=== PATIENT | female | born 1985 | race Hispanic/Latino ===

== ENCOUNTER 2017-08-25 20:13 | Emergency (ER) | payer MEDICARE ==
[~2017-08-25] VITALS: Ht 154.9 cm; Wt 89.8 kg
== END 2017-08-25 20:46 | disposition left against medical advice (07) ==
LOC: ER 20:13
DX: R20.0 Anesthesia of skin (principal)

== ENCOUNTER 2019-12-28 20:32 | Emergency (ER) | payer MEDICARE, OTHER ==
[~2019-12-28] VITALS: Ht 154.9 cm; Wt 89.8 kg
--- NOTE | 2019-12-28 20:59 | Emergency Department Note ---
History of Present Illnes History of Present Illness Chief Complaint: General Medicine Complaints History of Present Illness This is a 34 year old female COMES IN TO ED FOR COMPLAINTS OF PAIN TO RIGHT ANKLE AFTER GOING DOWN STAIRS PRIOR TO ARRIVAL. STATES SHE ROLLED HER ANKLE WHEN SHE REACHED THE BOTTOM OF THE STAIRS, STATES CAN BEAR WEIGHT SECONDARY TO PAIN . Historian: Patient Arrival Mode: Car Onset (how long ago): hour(s) (1) Location: RIGHT ANKLE Quality: PAIN Radiation: Reports non-radiation Severity: moderate Onset quality: sudden Duration (how long): hour(s) (1) Timing of current episode: constant Progression: unchanged Chronicity: new Context: Reports trauma/injury ( ABOVE) Relieving factors: none Exacerbating factors: movement, other (WEIGHT BEARING) Associated symptoms: Reports denies other symptoms Treatments prior to arrival: none Past Medical/Family History Physician Review I have reviewed the patient's past medical and family history. Any updates have been documented here. Past Medical History Recent Fever: No Clinical Suspicion of Infectio: No New/Unexplained Change in Ment: No Past Medical History: None Other Medical History: GESTATIONAL DIABETES Past Surgical History: Cholecysctectomy, Tubal Ligation Other Surgery: TUBAL REVERSE COLONOSCOPY Social History Smoking Cessation: Never Smoker Alcohol Use: None Any Illegal Drug Use: No Physically hurt or threatened: No Other Last Tetanus: NOT UTD Review of Systems Review of Systems Constitutional: Reports no symptoms EENTM: Reports no symptoms Cardiovascular: Reports no symptoms Respiratory: Reports no symptoms Gastrointestinal: Reports no symptoms Genitourinary: Reports no symptoms Musculoskeletal: Reports as per HPI Integumentary: Reports no symptoms Neurological: Reports no symptoms Psychological: Reports no symptoms Endocrine: Reports no symptoms Hematological/Lymphatic: Reports no symptoms Physical Exam Related Data Allergies: Coded Allergies: No Known Drug Allergies (Verified Allergy, Mild, 12/19/09) Triage Vital Signs Vital Signs Date Time Temp Pulse Resp B/P (MAP) Pulse Ox O2 Delivery O2 Flow Rate FiO2 12/28/19 20:38 98.3 74 18 102/65 100 Vital signs reviewed: Yes Physical Exam CONSTITUTIONAL Constitutional: Present well-developed, Present well-nourished; Absent distressed HENT HENT: Present normocephalic, Present atraumatic, Present oropharynx clear/moist, Present nose normal HENT L/R: Present left ext ear normal, Present right ext ear normal EYES Eyes: Reports PERRL, Reports conjunctivae normal NECK Neck: Present ROM normal PULMONARY Pulmonary: Present effort normal, Present breath sounds normal CARDIOVASCULAR Cardiovascular: Present regular rhythm, Present heart sounds normal, Present capillary refill normal, Present normal rate GASTROINTESTINAL Abdominal: Present soft, Present nontender, Present bowel sounds normal GENITOURINARY Genitourinary: Present exam deferred SKIN Skin: Present warm, Present dry MUSCULOSKELETAL PAIN TO LATERAL ASPECT OF RIGHT ANKLE WITH ROM, NO SWELLING OR DEFORMITY NOTED, PULSES INTACT NEUROLOGICAL Neurological: Present alert, Present oriented x 3, Present no gross motor or sensory deficits PSYCHOLOGICAL Psychological: Present mood/affect normal, Present judgement normal Results Imaging Imaging results reviewed: Yes Impressions Procedure: [id number] DX/ANKLE 3 + VIEWS RIGHT Exam Date: 12/28/19 Exam Time: 2133 REPORT STATUS: Signed X-ray right ankle 3 views HISTORY: Pain. COMPARISON: None available. FINDINGS: Bones: Tiny flake avulsion from the lateral malleolus tip. Joints: The joint spaces are well-maintained. Soft tissues: Edema about the foot and ankle. IMPRESSION: Tiny flake avulsion from the lateral malleolus tip. Edema about the foot and ankle. Signed by: Sindi Savage DO on 12/28/2019 10:57 PM Dictated By: SINDI SAVAGE DO 56 Transcribed By: ARIANNA on 12/28/192256 COPY TO: FABRICE NINO MD~ Procedures Orthopedic Splinting/Casting Injury: Injury #1 Side: right Lower extremity injury locatio: ankle Lower extremity immobilizer: boot orthosis Other orthopedic equipment: crutches Assessment & Plan Medical Decision Making MDM XRAY RIGHT ANKLE ORDERED TO EVAL FOR FRACTURE Assessment & Plan Final Impression: (1) Avulsion fracture of lateral malleolus of right fibula Depart Disposition: HOME, SELF-CARE Last Vital Signs Date Time Temp Pulse Resp B/P (MAP) Pulse Ox O2 Delivery O2 Flow Rate FiO2 12/28/19 20:38 98.3 74 18 102/65 100 FABRICE NINO MD Dec 28, 2019 20:59
--- OUTSIDE RECORDS SUMMARY | 2019-12-28 22:39 | XMS REPORT | Continuity of Care Document ---
Author Author [employer] Address Unknown Phone Unavailable Care Team Providers Care Provider Education Specialist Name Role Phone [employer] Unavailable Un available Problems No Data Provided for This Section Medications No Data Provided for This Section Allergies, Adverse Reactions, Alerts No Known Medication Allergies Immunizations No Data Provided for This Section Results No Data Provided for This Section Pathology Reports No Data Provided for This Section Diagnostic Reports No Data Provided for This Section Consultation Notes No Data Provided for This Section Discharge Summaries No Data Provided for This Section History and Physicals No Data Provided for This Section Vital Signs No Data Provided for This Section Encounters Location Location Details Encounter Type Encounter Number Reason For Visit Attending Provider ADM Date DC Date Status Source Outpatient [id number] [facility] 06/06/[address] [facility] Outpatient [id number] [facility] 11/07/[address] [facility] Procedures No Data Provided for This Section Assessment and Plan No Data Provided for This Section Plan of Care No Data Provided for This Section Social History No Data Provided for This Section Family History No Data Provided for This Section Advance Directives No Data Provided for This Section Functional Status No Data Provided for This Section
--- OUTSIDE RECORDS SUMMARY | 2019-12-28 22:39 | XMS REPORT | Continuity of Care Document ---
Author Author [facility] t Organization [facility] Address [address] [place] [address] Phone Unavailable Care Team Providers Care Wafer Machine Operator Name Role Phone NONSTAFF PCP Unavailable Payers Payer Name Policy Type Policy Number Effective Date Expiration Date S ource Problems Condition Name Condition Details Condition Category Status Onset Date Resolution Date Last Treatment Date Treating Clinician Comments Source Delayed surgical wound healing Delayed surgical wound healing Problem Active [facility] Allergies, Adverse Reactions, Alerts Allergy Name Allergy Type Status Severity Reaction(s) Onset Date Inacti ve Date Treating Clinician Comments Source No Known Allergies DA Active U 2017-07-03 00:00:00 [facility] Medications This patient has no known medications. Procedures This patient has no known procedures. Encounters Start Date/Time End Date/Time Encounter Type Admission Type Attendi [facility] Care Department Encounter ID Source 2019-02-22 11:00:00 2019-02-22 11:15:00 Departed Emergency Room [facility] [id number] [facility] 2017-08-25 20:13:00 2017-08-25 20:46:00 Departed Emergency Room [facility] [id number] [facility] Results Test Description Test Time Test Comments Results Result Comments Source URINALYSIS COMPLETE 2019-02-16 03:04:00 Test Item UA COLOR (test code = COLU) YELLOW YELLOW UA APPEARANCE (test code = APPU) CLEAR CLEAR UA GLUCOSE DIPSTICK (test code = DGLUU) NEGATIVE mg/dL NEGATIVE UA BILIRUBIN DIPSTICK (test code = BILU) NEGATIVE mg/dL NEGATIVE UA KETONE DIPSTICK (test code = KETU) NEGATIVE mg/dL NEGATIVE UA SPECIFIC GRAVITY (test code = SGU) 1.034 1.001-1.035 UA BLOOD DIPSTICK (test code = MARCE) 1.0 mg/dL (3+) mg/dL NEGATIVE A UA PH DIPSTICK (test code = VERNON) 6.5 5.0-8.0 UA PROTEIN DIPSTICK (test code = PROU) 20 (Trace) mg/dL NEGATIVE A UA UROBILINIOGEN DIPSTICK (test code = URO) 0.0-0.2 (NORMAL) mg/dL 0.0-0.2 UA NITRITE DIPSTICK (test code = HALEY) NEGATIVE NEGATIVE UA LEUKOCYTE ESTERASE W REFLEX (test code = LEUUR) NEGATIVE Matty/uL NEGATIVE UA WBC (test code = WBCU) 0-5 per HPF 0-5 UA RBC (test code = RBCU) 0-2 #/HPF 0-5 UA EPITHELIAL CELLS (test code = EPIU) FEW per HPF FEW UA BACTERIA (test code = BACU) NONE SEEN #/HPF NONE UA MUCUS (test code = MUCU) FEW #/LPF FEW Urine Source? Clean CatchBASIC METABOLIC [id number] 02:59:00* Test Item Value Reference Range Interpretation Comments SODIUM (test code = NA) 144 mmol/L 136-145 N POTASSIUM (test code = K) 3.7 mmol/L 3.5-5.1 N CHLORIDE (test code = CL) 109.0 mmol/L 98-107 H CARBON DIOXIDE (test code = CO2) 27.0 mmol/L 21-32 N ANION GAP (test code = GAP) 11.7 10-20 N GLUCOSE (test code = GLU) 98 mg/dL 74-106 N BLOOD UREA NITROGEN (test code = BUN) 17 mg/dL 7-18 N GLOMERULAR FILTRATION RATE (test code = GFR) > 60 mL/min >=60 Estimated GFR by using Modified MDRD formula.Chronic kidney disease is defined as either kidney damageor GFR <60 mL/min/1.73 m2 for >3 months. CREATININE (test code = CREAT) 0.60 mg/dL 0.55-1.02 N Note change in reference range due to change in reagent. BUN/CREATININE RATIO (test code = BUN/CREA) 28.3 10-20 H CALCIUM (test code = CA) 8.5 mg/dL 8.5-10.1 N HEPATIC FUNCTION [id number] 02:59:00* Test Item Value Reference Range Interpretation Comments TOTAL PROTEIN (test code = PROT) 7.3 gram/dL 6.4-8.2 N ALBUMIN (test code = ALB) 3.5 g/dL 3.4-5.0 N GLOBULIN (test code = GLOB) 3.8 gram/dL 2.7-4.2 N ALBUMIN/GLOBULIN RATIO (test code = A/G) 0.9 0.75-1.50 N BILIRUBIN TOTAL (test code = BILT) 0.30 mg/dL 0.0-1.0 N BILIRUBIN DIRECT (test code = BILD) 0.07 mg/dL 0.0-0.20 N SGOT/AST (test code = AST) 8 IUnit/L 15-37 L SGPT/ALT (test code = ALT) 17 IUnit/L 12-78 N ALKALINE PHOSPHATASE TOTAL (test code = ALKP) 58 IUnit/L 45-117 N Note change in reference range due to change in reagent. HCG SERUM [id number] 02:59:00* Test Item Value Reference Range Interpretation Comments HCG SERUM QUAL (test code = HCGQL) NEGATIVE NEGATIVE This HCGQL test is NOT applicable for MALE patients.Check with nurse about probable order error.If Tumor Marker Test needed, nurse should order test "HCGTU"(Test #550.00354) [id number] 02:59:00* Test Item Value Reference Range Interpretation Comments TROPONIN-I (test code = TROPI) <0.015 ng/mL 0-0.045 N BASIC METABOLIC [id number] 02:56:00* Test Item Value Reference Range Interpretation Comments SODIUM (test code = NA) 144 mmol/L 136-145 N POTASSIUM (test code = K) 3.7 mmol/L 3.5-5.1 N CHLORIDE (test code = CL) 109.0 mmol/L 98-107 H CARBON DIOXIDE (test code = CO2) mmol/L 21-32 ANION GAP (test code = GAP) 10-20 GLUCOSE (test code = GLU) mg/dL 74-106 BLOOD UREA NITROGEN (test code = BUN) mg/dL 7-18 GLOMERULAR FILTRATION RATE (test code = GFR) mL/min >=60 CREATININE (test code = CREAT) mg/dL 0.55-1.02 BUN/CREATININE RATIO (test code = BUN/CREA) 10-20 CALCIUM (test code = CA) mg/dL 8.5-10.1 HEPATIC FUNCTION [id number] 02:56:00* Test Item Value Reference Range Interpretation Comments TOTAL PROTEIN (test code = PROT) gram/dL 6.4-8.2 ALBUMIN (test code = ALB) g/dL 3.4-5.0 GLOBULIN (test code = GLOB) gram/dL 2.7-4.2 ALBUMIN/GLOBULIN RATIO (test code = A/G) 0.75-1.50 BILIRUBIN TOTAL (test code = BILT) mg/dL 0.0-1.0 BILIRUBIN DIRECT (test code = BILD) mg/dL 0.0-0.20 SGOT/AST (test code = AST) IUnit/L 15-37 SGPT/ALT (test code = ALT) IUnit/L 12-78 ALKALINE PHOSPHATASE TOTAL (test code = ALKP) IUnit/L 45-117 HCG SERUM [id number] 02:56:00* Test Item Value Reference Range Interpretation Comments HCG SERUM QUAL (test code = HCGQL) NEGATIVE NEGATIVE This HCGQL test is NOT applicable for MALE patients.Check with nurse about probable order error.If Tumor Marker Test needed, nurse should order test "HCGTU"(Test #550.79901) [id number] 02:56:00* Test Item Value Reference Range Interpretation Comments TROPONIN-I (test code = TROPI) ng/mL 0-0.045 PROTHROMBIN [id number] 02:53:00* Test Item Value Reference Range Interpretation Comments PROTHROMBIN TIME PATIENT (test code = PTP) 10.6 seconds 9.0-14.0 N INTERNATIONAL NORMAL RATIO (test code = INR) 0.9 0.8-1.2 N The therapeutic range for oral anticoagulant therapy formost indications is an international normalized ratio (INR)of between 2.0 and 3.0. The recommended therapeutic INRrange for various clinical situations is listed below: Clinical Situation INR range Pulmonary e mbolism treatment (2.0-3.0)Venous thrombosis treatmentVenous thrombosis prophylaxis (high risk surgery)Prevention of systemic embolism from: Acute myocardial infarction Valvular heart disease Atrial fibrillation Mechanical prosthetic heart valves (2.5-3.5) IS PATIENT ON ANTICOAGULANTS? NTHROMBOPLASTIN TIME [id number] 02:53:00* Test Item Value Reference Range Interpretation Comments THROMBOPLASTIN TIME PARTIAL (test code = PTT) 30.5 seconds 25.0-36. 5 N IS PATIENT ON ANTICOAGULANTS? NBASIC METABOLIC [id number] 02:49:00* Test Item Value Reference Range Interpretation Comments SODIUM (test code = NA) 144 mmol/L 136-145 N POTASSIUM (test code = K) 3.7 mmol/L 3.5-5.1 N CHLORIDE (test code = CL) 109.0 mmol/L 98-107 H CARBON DIOXIDE (test code = CO2) mmol/L 21-32 ANION GAP (test code = GAP) 10-20 GLUCOSE (test code = GLU) mg/dL 74-106 BLOOD UREA NITROGEN (test code = BUN) mg/dL 7-18 GLOMERULAR FILTRATION RATE (test code = GFR) mL/min >=60 CREATININE (test code = CREAT) mg/dL 0.55-1.02 BUN/CREATININE RATIO (test code = BUN/CREA) 10-20 CALCIUM (test code = CA) mg/dL 8.5-10.1 HEPATIC FUNCTION [id number] 02:49:00* Test Item Value Reference Range Interpretation Comments TOTAL PROTEIN (test code = PROT) gram/dL 6.4-8.2 ALBUMIN (test code = ALB) g/dL 3.4-5.0 GLOBULIN (test code = GLOB) gram/dL 2.7-4.2 ALBUMIN/GLOBULIN RATIO (test code = A/G) 0.75-1.50 BILIRUBIN TOTAL (test code = BILT) mg/dL 0.0-1.0 BILIRUBIN DIRECT (test code = BILD) mg/dL 0.0-0.20 SGOT/AST (test code = AST) IUnit/L 15-37 SGPT/ALT (test code = ALT) IUnit/L 12-78 ALKALINE PHOSPHATASE TOTAL (test code = ALKP) IUnit/L 45-117 HCG SERUM [id number] 02:49:00* Test Item Value Reference Range Interpretation Comments HCG SERUM QUAL (test code = HCGQL) NEGATIVE [id number] 02:49:00* Test Item Value Reference Range Interpretation Comments TROPONIN-I (test code = TROPI) ng/mL 0-0.045 CBC W/O [id number] 02:42:00* Test Item Value Reference Range Interpretation Comments WHITE BLOOD CELL (test code = WBC) 5.4 K/mm3 4.5-12.5 N RED BLOOD CELL (test code = RBC) 4.34 mill/mm3 3.7-5.2 N HEMOGLOBIN (test code = HGB) 10.8 gram/dL 11.5-15.5 L HEMATOCRIT (test code = HCT) 35.8 % 36.0-46.0 L MEAN CELL VOLUME (test code = MCV) 82.5 fL 80-98 N MEAN CELL HGB (test code = MCH) 24.9 picogram 27.0-33.0 L MEAN CELL HGB CONCETRATION (test code = MCHC) 30.2 gram/dL 33.0-36. 0 L RED CELL DISTRIBUTION WIDTH (test code = RDW) 13.9 % 11.6-16. 2 N PLATELET COUNT (test code = PLT) 362 K/mm3 150-450 N MEAN PLATELET VOLUME (test code = MPV) 8.9 fL 6.7-11.0 N
--- NOTE | 2019-12-28 23:01 | Diagnostic Imaging Report ---
X-ray right ankle 3 views HISTORY: Pain. COMPARISON: None available. FINDINGS: Bones: Tiny flake avulsion from the lateral malleolus tip. Joints: The joint spaces are well-maintained. Soft tissues: Edema about the foot and ankle. IMPRESSION: Tiny flake avulsion from the lateral malleolus tip. Edema about the foot and ankle. Signed by: Jeffrey Savage DO on 12/28/2019 10:57 PM
== END 2019-12-28 23:45 | disposition home or self-care (01) ==
LOC: ER 20:39
DX: S82.61XA Displaced fracture of lateral malleolus of right fibula, initial encounter for closed fracture (principal); X50.1XXA Overexertion from prolonged static or awkward postures, initial encounter; Y93.01 Activity, walking, marching and hiking
CPT/HCPCS: 99283

== ENCOUNTER 2020-06-15 17:42 | Emergency (ER) | payer MEDICARE, OTHER ==
[~2020-06-15] VITALS: Ht 154.9 cm; Wt 95.3 kg
[2020-06-15] MEDS ORDERED: ZOFRAN4 MG PO (18:00)
[2020-06-15] MEDS ORDERED: MECLIZINE HCL12.5 MG PO (18:00)
== END 2020-06-15 18:14 | disposition home or self-care (01) ==
LOC: FSED 17:55
DX: H81.11 Benign paroxysmal vertigo, right ear (principal); E03.9 Hypothyroidism, unspecified
CPT/HCPCS: 99283

== ENCOUNTER 2020-08-17 19:08 | Emergency (ER) | payer OTHER ==
[~2020-08-17] VITALS: Ht 154.9 cm; Wt 97.5 kg
[~2020-08-17 19:08] MED LIST: MECLIZINE HCL12.5 MG PO; ZOFRAN4 MG PO
[2020-08-17] MEDS ORDERED: BELLADONNA ALK/PHENOBARBITAL 5 ML UDC ONE (21:22)
[2020-08-17] MEDS ORDERED: LIDOCAINE VISC 2% SOLN 15 ML UDC ONE (21:22)
[2020-08-17] MEDS ORDERED: MAGNESIUM/ALUMINUM/SIMETHICONE 30 ML UDC ONE (21:23)
[2020-08-17] MEDS ORDERED: FAMOTIDINE 20 MG TAB PO ONE (22:00)
[2020-08-17] MEDS ORDERED: FAMOTIDINE 20 MG TAB ONE (22:07)
[2020-08-17] MEDS ORDERED: FAMOTIDINE20 MG PO (22:32)
[2020-08-17 22:38] VITALS: BP 123/73
[2020-08-18] MEDS ORDERED: DONNATAL/LIDOCAINE/MAALOX 30 ML SUSP PO ONE (01:45)
== END 2020-08-17 22:38 | disposition home or self-care (01) ==
LOC: FSED 22:03
DX: K21.9 Gastro-esophageal reflux disease without esophagitis (principal); R07.9 Chest pain, unspecified; E06.3 Autoimmune thyroiditis; E03.9 Hypothyroidism, unspecified; E28.2 Polycystic ovarian syndrome; Z79.899 Other long term (current) drug therapy
CPT/HCPCS: 93005; 99283

== ENCOUNTER 2020-09-04 17:08 | Emergency (ER) | payer OTHER ==
[~2020-09-04] VITALS: Ht 154.9 cm; Wt 101.2 kg
[~2020-09-04 17:08] MED LIST changes: +FAMOTIDINE20 MG PO
[2020-09-04] MEDS ORDERED: ACETAMINOPHEN 325 MG TAB PO ONE (17:30)
== END 2020-09-04 19:04 | disposition home or self-care (01) ==
LOC: FSED 17:12
DX: U07.1 COVID-19 (principal)
CPT/HCPCS: 71045; 83518; 87400; 99283; U0002

== ENCOUNTER 2021-01-02 11:17 | Emergency (ER) | payer OTHER ==
[~2021-01-02] VITALS: Ht 154.9 cm; Wt 101.2 kg
[2021-01-02] MEDS ORDERED: KETOROLAC TROMETHAMINE 60 MG/2 ML VIAL IM ONE (12:00)
[2021-01-02] MEDS ORDERED: HYDROCODONE/APAP 7.5MG-325MG 1 EA TAB PO ONE (12:00)
[2021-01-02] MEDS ORDERED: ONDANSETRON HCL 4 MG ORAL DISINTEGRATING TAB PO ONE (12:00)
== END 2021-01-02 13:10 | disposition home or self-care (01) ==
LOC: ER 11:27
DX: S93.401A Sprain of unspecified ligament of right ankle, initial encounter (principal); X50.1XXA Overexertion from prolonged static or awkward postures, initial encounter; Y93.01 Activity, walking, marching and hiking; Y92.89 Other specified places as the place of occurrence of the external cause; E06.3 Autoimmune thyroiditis; E28.2 Polycystic ovarian syndrome
CPT/HCPCS: 73610; 99283; J1885; Q0162

== ENCOUNTER 2021-03-20 17:01 | Emergency (ER) | payer OTHER ==
[~2021-03-20] VITALS: Ht 154.9 cm; Wt 98.0 kg
[2021-03-20] MEDS ORDERED: LEVOTHYROXINE50 MCG PO (18:18)
== END 2021-03-20 20:45 | disposition home or self-care (01) ==
LOC: FSED 17:40
DX: R05.9 Cough, unspecified (principal); J06.9 Acute upper respiratory infection, unspecified; E03.9 Hypothyroidism, unspecified; E28.2 Polycystic ovarian syndrome
CPT/HCPCS: 83518; 87400; 87420; 99282

== ENCOUNTER 2021-04-24 18:35 | Emergency (ER) | payer OTHER ==
[~2021-04-24] VITALS: Ht 154.9 cm; Wt 103.9 kg
[~2021-04-24 18:35] MED LIST changes: +LEVOTHYROXINE50 MCG PO
[2021-04-24] MEDS ORDERED: HYDROXYZINE HCL 25 MG TAB PO STA (18:47)
[2021-04-24] MEDS ORDERED: DIPHENHYDRAMINE HCL 25 MG CAP PO STA (18:49)
[2021-04-24] MEDS ORDERED: PREDNISONE 20 MG TAB PO STA (18:49)
[2021-04-24] MEDS ORDERED: PREDNISONE 20 MG TAB ONE (19:14)
[2021-04-24] MEDS ORDERED: DIPHENHYDRAMINE HCL 25 MG CAP ONE (19:15)
[2021-04-24] MEDS ORDERED: PREDNISONE20 MG PO (19:23)
[2021-04-24] MEDS ORDERED: HYDROXYZINE HCL25 MG PO (19:23)
[2021-04-24 19:25] VITALS: BP 118/70
== END 2021-04-24 19:25 | disposition home or self-care (01) ==
LOC: FSED 18:40
DX: R21 Rash and other nonspecific skin eruption (principal); E03.9 Hypothyroidism, unspecified; E28.2 Polycystic ovarian syndrome
CPT/HCPCS: 99282; J7512

== ENCOUNTER 2021-10-20 03:17 | Emergency (ER) | payer OTHER ==
[~2021-10-20] VITALS: Ht 154.9 cm; Wt 103.9 kg
[~2021-10-20 03:17] MED LIST changes: +HYDROXYZINE HCL25 MG PO; +PREDNISONE20 MG PO
[2021-10-20] MEDS ORDERED: AMOXICILLIN/CLAVULANATE K 875 MG TAB PO STA (04:21)
[2021-10-20] MEDS ORDERED: IBUPROFEN 600 MG TAB PO STA (04:22)
[2021-10-20] MEDS ORDERED: DEXAMETHASONE SOD PHOS 10 MG/1 ML VIAL IM ONE (04:30)
[2021-10-20] MEDS ORDERED: AMOXICILLIN500 MG PO (04:33)
[2021-10-20] MEDS ORDERED: DEXAMETHASONE SOD PHOS INJ 4 MG/ML SDV ONE (04:34)
[2021-10-20] MEDS ORDERED: IBUPROFEN600 MG PO (04:34)
[2021-10-20] MEDS ORDERED: FLUTICASONE PRO16 GM INH (04:36)
[2021-10-20] MEDS ORDERED: IBUPROFEN 600 MG TAB ONE (04:36)
== END 2021-10-20 04:45 | disposition home or self-care (01) ==
LOC: FSED 03:21
DX: J02.9 Acute pharyngitis, unspecified (principal); H69.81 Other specified disorders of Eustachian tube, right ear; H92.01 Otalgia, right ear; E03.9 Hypothyroidism, unspecified; Z90.49 Acquired absence of other specified parts of digestive tract; E66.01 Morbid (severe) obesity due to excess calories; Z68.41 Body mass index [BMI] 40.0-44.9, adult
CPT/HCPCS: 99283; J1100

== ENCOUNTER 2022-04-21 19:52 | Emergency (ER) | payer OTHER ==
[~2022-04-21] VITALS: Ht 154.9 cm; Wt 80.7 kg
[~2022-04-21 19:52] MED LIST changes: +AMOXICILLIN500 MG PO; +FLUTICASONE PRO16 GM INH; +IBUPROFEN600 MG PO
[2022-04-21] MEDS ORDERED: CEFDINIR250 MG/5 M PO (20:12)
[2022-04-21] MEDS ORDERED: ACETAMINOP160 MG/52 PO (20:12)
[2022-04-21 20:16] VITALS: BP 107/73
[2022-04-22] MEDS ORDERED: AZITHROMYC200 MG/5 M PO (12:57)
== END 2022-04-21 20:16 | disposition home or self-care (01) ==
LOC: FSED 20:02
DX: H66.92 Otitis media, unspecified, left ear (principal); E03.9 Hypothyroidism, unspecified; Z79.899 Other long term (current) drug therapy
CPT/HCPCS: 99282

== ENCOUNTER 2022-04-22 11:30 | Emergency (ER) | payer OTHER ==
[~2022-04-22] VITALS: Ht 154.9 cm; Wt 80.7 kg
[~2022-04-22 11:30] MED LIST changes: +ACETAMINOP160 MG/52 PO; +CEFDINIR250 MG/5 M PO
[2022-04-22] MEDS ORDERED: DEXAMETHASONE SOD PHOS 10 MG/1 ML VIAL IM ONE (12:45)
[2022-04-22] MEDS ORDERED: AZITHROMYC200 MG/5 M PO (12:57)
[2022-04-22] MEDS ORDERED: DEXAMETHASONE SOD PHOS INJ 4 MG/ML SDV ONE (12:58)
== END 2022-04-22 13:31 | disposition home or self-care (01) ==
LOC: FSED 12:06
DX: L29.9 Pruritus, unspecified (principal); T36.1X5A Adverse effect of cephalosporins and other beta-lactam antibiotics, initial encounter; H66.92 Otitis media, unspecified, left ear; E03.9 Hypothyroidism, unspecified; Z98.84 Bariatric surgery status; Z79.899 Other long term (current) drug therapy; Y92.009 Unspecified place in unspecified non-institutional (private) residence as the place of occurrence of the external cause
CPT/HCPCS: 99282; J1100 ×2

== ENCOUNTER 2022-05-20 11:05 | Emergency (ER) | payer OTHER ==
[~2022-05-20] VITALS: Ht 154.9 cm; Wt 78.5 kg
[~2022-05-20 11:05] MED LIST changes: +AZITHROMYC200 MG/5 M PO
[2022-05-20] MEDS ORDERED: METHYLPREDNISOLONE SOD SUCC 125 MG/2ML VIAL ONE (11:38)
[2022-05-20] MEDS ORDERED: METHYLPREDNISOLONE SOD SUCC 125 MG/2ML VIAL IM ONE (11:45)
[2022-05-20] MEDS ORDERED: BENADRYL25 M1 PO (11:46)
[2022-05-20] MEDS ORDERED: PEPCID20 MG PO (11:46)
[2022-05-20] MEDS ORDERED: FAMOTIDINE 20 MG TAB PO ONE (12:00)
== END 2022-05-20 12:12 | disposition home or self-care (01) ==
LOC: FSED 11:08
DX: R21 Rash and other nonspecific skin eruption (principal); T78.40XA Allergy, unspecified, initial encounter; E03.9 Hypothyroidism, unspecified; E28.2 Polycystic ovarian syndrome; Z98.84 Bariatric surgery status
CPT/HCPCS: 99282; J2930

== ENCOUNTER 2024-05-02 20:28 | Emergency (ER) | payer OTHER ==
[~2024-05-02] VITALS: Ht 154.9 cm; Wt 78.5 kg
[~2024-05-02 20:28] MED LIST changes: +BENADRYL25 M1 PO; +PEPCID20 MG PO
[2024-05-02 20:30] VITALS: PULSE 87; RESP 18; TEMP 98.7; O2SAT 98
[2024-05-02] MEDS: ACETAMINOPHEN 325 MG TAB PO ONE (20:49)
[2024-05-02] MEDS ORDERED: ULTRAM 50MG50 MG PO (21:42)
== END 2024-05-02 21:55 | disposition home or self-care (01) ==
LOC: ER 20:38
DX: S82.52XA Displaced fracture of medial malleolus of left tibia, initial encounter for closed fracture (principal); M25.472 Effusion, left ankle; X50.1XXA Overexertion from prolonged static or awkward postures, initial encounter; Y92.89 Other specified places as the place of occurrence of the external cause; E03.9 Hypothyroidism, unspecified; E28.2 Polycystic ovarian syndrome; Z98.84 Bariatric surgery status
CPT/HCPCS: 99283